=== PATIENT | female | born 1965 | race Caucasian/White ===

== ENCOUNTER 2021-02-14 20:21 | Emergency (ER) | payer OTHER ==
[~2021-02-14] VITALS: Ht 152.4 cm; Wt 88.5 kg
[2021-02-14] MEDS ORDERED: METHOCARBAMOL750 M1 PO (21:13)
[2021-02-14] MEDS ORDERED: NAPROSYN500 MG PO (21:13)
== END 2021-02-14 21:16 | disposition home or self-care (01) ==
LOC: ED 20:21
DX: S16.1XXA Strain of muscle, fascia and tendon at neck level, initial encounter (principal); M25.511 Pain in right shoulder; R51.9 Headache, unspecified; V89.2XXA Person injured in unspecified motor-vehicle accident, traffic, initial encounter; Y93.89 Activity, other specified; Y92.488 Other paved roadways as the place of occurrence of the external cause; Y99.8 Other external cause status